=== PATIENT | male | born 1965 | race African-American/Black ===

== ENCOUNTER → 2016-12-28 | Outpatient (CLI) | payer OTHER ==
--- NOTE | 2016-12-28 15:48 | MRI ---
HISTORY: Meniscal derangement Study: Magnetic resonance imaging of the right knee: Multiplanar multisequence magnetic resonance im aging of the right knee was performed on a closed magnet. Comparison: None Findings: The marrow signal intensity is generally homogeneous. There are small subchondral defects noted showi ng mild edema. Moderately severe patellofemoral joint degeneration is noted. Moderate spurring is not ed in the medial compartment with mild in the lateral compartment. 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 A small joint effusion is noted. There appears to m ost likely be a small amount of debris within the joint. No appreciable popliteal cyst is noted. The anterior cruciate ligament and posterior cruciate ligament are intact. The lateral collateral lig ament and iliotibial tract are intact. The medial collateral ligament is intact. The pes anserinus is intact. Joint space irregularity and chondral loss is noted predominating in the medial compartment. The popliteus tendon is intact. The popliteus, vastus medialis and lateralis muscles appear to be in tact. The gastrocnemius muscles appear to be intact. There is a complex oblique tear of the medial meniscus extending from the body into the posterior hor n. The posterior horn is mildly macerated. The associated root ligaments appear to be intact. The lat eral meniscus and its associated root ligaments are intact. Hoffa's fat pad is intact. The meniscofem oral ligament is not clearly identified as an intact structure. There may be a gap between the femora l attachment in the ligament itself. The transverse meniscal ligament is not clearly seen as an intac t structure. The quadriceps tendon is intact. There is mild abnormal signal intensity within the prox imal and distal patellar tendon, possibly due to strain or enthesopathy. Plain film correlation is re commended. There appear to be venous varicosities along the medial aspect of the distal thigh, knee and proximal calf IMPRESSION: 1. Degenerative change in the right knee as described above, predominating in the medial compartment consisting of loss of chondral surfaces, subchondral cyst formation and joint space narrowing. 2. Complex tear of the medial meniscus extending from the body into the posterior horn. 3. Possible strain of the patellar tendon versus enthesopathy. 4. Small complex joint effusion. Reported By:
== END | disposition home or self-care (01) ==
LOC: RAD 12:14
PROVIDERS: ATTEND Specialist
DX: S83.231A Complex tear of medial meniscus, current injury, right knee, initial encounter (principal); X58.XXXA Exposure to other specified factors, initial encounter; M25.461 Effusion, right knee
CPT/HCPCS: 73721